=== PATIENT | male | born 1990 | race Caucasian/White ===

== ENCOUNTER 2021-04-22 23:41 | Emergency (ER) | payer MEDICAID, OTHER ==
[~2021-04-22] VITALS: Ht 180.3 cm; Wt 80.3 kg
[2021-04-23 00:32] VITALS: BP 141/89
--- NOTE | 2021-04-23 00:35 | NUR ---
PT BIBSELF C/O SORE THROAT, DIARRHEA, BODY ACHES, AND INTERMITTENT FEVER. PT AAO X 4, BREATHING EVEN AND UNLABORED, SATURATION AT 98% ON ROOM AIR. SEEN AND EXAMINED BY DR BREAUX. WILL CONT TO MONITOR.
--- NOTE | 2021-04-23 01:05 | NUR ---
covid swab sent to lab
--- NOTE | 2021-04-23 01:43 | NUR ---
CALLED LAB TO F/U ABOUT RESULT.
--- NOTE | 2021-04-23 02:25 | NUR ---
covid swab resent to lab
--- NOTE | 2021-04-23 03:15 | NUR ---
Patient discharged to home in stable condition. Written and verbal after care instructions given. Patient verbalizes understanding of instruction. Pt ambulatory with a steady gait. 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
== END 2021-04-23 03:15 | disposition home or self-care (01) ==
LOC: ER 04-23 00:24
DX: Z03.89 Encounter for observation for other suspected diseases and conditions ruled out (principal); Z20.822 Contact with and (suspected) exposure to COVID-19; F31.9 Bipolar disorder, unspecified; R03.0 Elevated blood-pressure reading, without diagnosis of hypertension
CPT/HCPCS: 87426; 99283; C9803

== ENCOUNTER 2021-04-26 15:09 | Emergency (ER) | payer MEDICAID ==
[~2021-04-26] VITALS: Ht 182.9 cm; Wt 78.5 kg
--- NOTE | 2021-04-26 16:00 | NUR ---
Patient cam in to the er c/o left wrist annd head pain s/p getting arrested last night. On room air, breathing evenly and unlabored. Connected to the monitor and pulse ox. kept comfortable, will continue to monitor accordingly.
[2021-04-26] MEDS ORDERED: IBUP-1955 PO (16:13)
[2021-04-26 17:25] VITALS: BP 118/74
--- NOTE | 2021-04-26 17:26 | NUR ---
Patient given written and verbal discharge instructions. Patient verbalizes understanding of instructions. Patient is ambulatory with steady gait. Refuses offer of long term placement. Patient given list of available shelters in surrounding area.
== END 2021-04-26 17:26 | disposition home or self-care (01) ==
LOC: ER 15:14
DX: S60.812A Abrasion of left wrist, initial encounter (principal); S09.8XXA Other specified injuries of head, initial encounter; F31.9 Bipolar disorder, unspecified; Z79.899 Other long term (current) drug therapy; Y04.8XXA Assault by other bodily force, initial encounter; Y93.89 Activity, other specified; Y92.89 Other specified places as the place of occurrence of the external cause; Y99.8 Other external cause status
CPT/HCPCS: 73110

== ENCOUNTER 2021-04-27 15:25 | Emergency (ER) | payer MEDICAID ==
[~2021-04-27] VITALS: Ht 182.9 cm; Wt 77.6 kg
[~2021-04-27 15:25] MED LIST: IBUP-1955 PO
--- NOTE | 2021-04-27 15:34 | NUR ---
CALLED IN ED WAITING ROOM NO RESPONSE
[2021-04-27 15:48] VITALS: BP 138/74
[2021-04-27] MEDS ORDERED: LORAZEPAM 1 MG TABLET PO ONE (16:00)
[2021-04-27] MEDS ORDERED: LORAZEPAM 1 MG TABLET ONE (16:04)
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
--- NOTE | 2021-04-27 16:20 | NUR ---
PATIENT TOOK ATIVAN MEDICATION. BUT REFUSED ANY BLOOD DRAW AND COVID TEST. PATIENT DOESN'T WANT TO BE ADMITTED IN A PSYCHIATRIC HOSPITAL. HE'S ASKING FOR RESOURCES, WHICH WILL BE PROVIDED. ATTEMPTED TO CALL RESOURCE DEVELOPMENT DIRECTOR BUT THEY ARE GONE FOR THE DAY.
--- NOTE | 2021-04-27 16:22 | NUR ---
CHUY JAMA MADE AWARE.
[2021-04-27 16:33] LABS: BILIRUBIN,URINE Negative (NEGATIVE); COLOR,URINE YELLOW (YELLOW); LEUKOCYTE ESTERASE ,URINE Negative (NEGATIVE); NITRITE, URINE Negative (NEGATIVE); PROTEIN,URINE Negative (NEGATIVE); UGLUCOSE Negative (NEGATIVE); UROBILINOGEN,URINE 0.2 EU/dL (0.2)
--- NOTE | 2021-04-27 17:27 | NUR ---
PATIENT A/OX4, AMBULATORY WITH STEADY GAIT. NO DISTRESS NOTED. NEEDS ATTENDED. FOOD GIVEN. CLOTHES ADEQUATE. Patient given written and verbal discharge instructions. Patient verbalizes understanding of instructions. Patient is ambulatory with steady gait. Refuses offer of m[facility] placement. Patient given list of available shelters in surrounding area.EF
== END 2021-04-27 17:28 | disposition home or self-care (01) ==
LOC: ER 15:25
DX: F41.9 Anxiety disorder, unspecified (principal); F19.10 Other psychoactive substance abuse, uncomplicated; F31.9 Bipolar disorder, unspecified; Z79.899 Other long term (current) drug therapy

== ENCOUNTER 2021-04-28 03:03 | Emergency (ER) | payer MEDICAID ==
[~2021-04-28] VITALS: Ht 180.3 cm; Wt 70.8 kg
[2021-04-28 03:03] VITALS: BP 118/71
--- NOTE | 2021-04-28 03:05 | NUR ---
PT AAOX4. AMBULATORY WITH STEADY GAIT. BIBSELF TO THE ER C/O ANXIOUS X1 MONTH DUE TO "PEOPLE FOLLOWING HIM." PT DENIES SI AND HI. DENIES HAVING ANY PSYCH HX. PT REQUESTING TO BE PLACED IN AN ED BED TO REST. PT WAS SEEN AT [facility] YESTERDAY, WHICH HE WALKED OUT OF THE ED, AND DECLINED HAVING HIS BLOOD DRAWN. PT THEN RETURNED TO THE ED AT 202904/27/2020 AND REQUESTED TO BE PLACED IN A BED. PT DID NOT WANT TO CHECK IN AND DENIED HAVING MEDICAL COMPLAINTS. PT WAS SEEN AT [facility] ON 04/23/2021 FOR FLU LIKE SYMPTOMS. WHILE THE PATIENT WAS BEING DISCHARGED, THE PT DID STATE THAT HE LIED ABOUT HIS SYMPTOMS UPON TRIAGE AND TO THE MD DUE TO HIM WANTING TO BE PLACED INSIDE THE EMERGENCY DEPARTMENT BECAUSE HE WAS BEING FOLLOWED.
[2021-04-28] MEDS ORDERED: LORAZEPAM 0.5 MG TABLET ONE (03:06)
[2021-04-28] MEDS: LORAZEPAM 0.5 MG TABLET PO ONE (03:14)
--- NOTE | 2021-04-28 03:29 | NUR ---
PATIENT DISCHARGED. PT REFUSED TO SIGN PAPERWORK. PT WENT TO THE ED WAITING ROOM AND SAT THERE. DID NOT WANT TO LEAVE THE HOSPITAL.
== END 2021-04-28 04:06 | disposition home or self-care (01) ==
LOC: ER 03:03
DX: F41.9 Anxiety disorder, unspecified (principal); Z76.5 Malingerer [conscious simulation]; F32.9 Major depressive disorder, single episode, unspecified

== ENCOUNTER 2021-04-28 08:24 | Emergency (ER) | payer MEDICAID ==
[~2021-04-28] VITALS: Ht 180.3 cm; Wt 70.8 kg
--- NOTE | 2021-04-28 08:39 | NUR ---
SEEN BY DR SINGH, WANTDominic GRAPHICS SOFTWARE ENGINEER MIKY
--- NOTE | 2021-04-28 10:35 | NUR ---
Patient discharged to home in stable condition. Written and verbal after care instructions given. Patient verbalizes understanding of instruction.
[2021-04-28 10:37] VITALS: BP 131/84
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
== END 2021-04-28 10:38 | disposition home or self-care (01) ==
LOC: ER 08:26
DX: F41.9 Anxiety disorder, unspecified (principal); Z71.1 Person with feared health complaint in whom no diagnosis is made; F32.9 Major depressive disorder, single episode, unspecified; Z60.2 Problems related to living alone